=== PATIENT | female | born 1960 | race Hispanic/Latino ===

== ENCOUNTER 2021-02-17 08:10 | Emergency (ER) | payer BC, OTHER ==
[~2021-02-17] VITALS: Ht 152.4 cm; Wt 118.2 kg
[2021-02-17 09:41] LABS: BASOPHILS % 0.5 % (0.0-1.0); EOSINOPHILS # (AUTO) 0.2 (0.0-0.4); EOSINOPHILS % 2.2 % (0.0-6.0); HEMATOCRIT 39.2 % (34.2-44.1); HEMOGLOBIN 12.5 g/dL (12.0-16.0); LYMPHOCYTES # (AUTO) 1.9 (1.0-3.2); LYMPHOCYTES % 22.4 % (18.0-39.1); MEAN CORPUSCULAR HEMOGLOBIN 28.6 pg (28-32); MEAN CORPUSCULAR HGB CONC 31.9 g/dL (31-35); MEAN CORPUSCULAR VOLUME 89.7 fL (81-99); MONOCYTES # (AUTO) 0.4 (0.2-0.8); MONOCYTES % 5.2 % (4.4-11.3); NEUTROPHILS # (AUTO) 5.7 (2.1-6.9); NEUTROPHILS % 69.1 % (38.7-80.0); PLATELET COUNT 207 x10e3/uL (140-360); RED BLOOD COUNT 4.37 x10e6/uL (3.6-5.1); RED CELL DISTRIBUTION WIDTH 14.2 % (11.7-14.4)
[2021-02-17 10:11] LABS: INR 0.97; PROTHROMBIN TIME 13.1 seconds (11.9-14.5)
[2021-02-17 10:12] LABS: PARTIAL THROMBOPLASTIN TIME 26.8 seconds (23.8-35.5)
== END 2021-02-17 11:24 | disposition home or self-care (01) ==
LOC: ER 08:14
DX: N93.9 Abnormal uterine and vaginal bleeding, unspecified (principal); I10 Essential (primary) hypertension
CPT/HCPCS: 36415; 84702; 85025; 85610; 85730; 99284